=== PATIENT | female | born 1970 | race Caucasian/White ===

== ENCOUNTER → 2018-08-30 | Outpatient (CLI) | payer OTHER ==
[~2018-08-30] MED LIST: ALBIPROI INH; AMOX500 PO; CIPR500 PO; CLOT10 SUSW; CYCL10 PO; DEXA4 PO; DEXGUASY; DIPH12.5EL; DOCU100 PO; HYDACE5 PO; HYDCHL25; HYDGUAL120 PO; LEVFLO500 PO; LISI10; LISI20 PO; LISI5; LISI5 PO; METF500; METF500 PO; METR500 PO; OMEP20ER PO; ONMEL200 MG PO; OXYACE5T PO; PRED20 PO; PROM25 PO; RXOXYACE PO; SULTRIDS PO; TRAM50 PO; Zofran Odt4 MG PO
== END | disposition home or self-care (01) ==
LOC: LAB EV 12:58 → LAB SHORT 12:58
DX: J02.9 Acute pharyngitis, unspecified (principal)
CPT/HCPCS: 87070; 87147

== ENCOUNTER → 2021-04-06 | Outpatient (CLI) | payer OTHER | LOC: LAB SHORT 12:30 → LAB 12:30 | DX: L03.116 Cellulitis of left lower limb (principal); Z88.1 Allergy status to other antibiotic agents | CPT/HCPCS: 87070; 87205 ==

== ENCOUNTER → 2024-03-15 | Outpatient (CLI) | payer OTHER ==
[2024-03-24 05:54] LABS: HPV HIGH RISK BY TMA Not Detected; HPV SOURCE Cervical
== END ==
LOC: LAB SHORT 18:19 → LAB 18:19
PROVIDERS: Family Medicine
DX: Z01.419 Encounter for gynecological examination (general) (routine) without abnormal findings (principal)
CPT/HCPCS: 87624; G0123

== ENCOUNTER → 2024-09-02 | Outpatient (CLI) | payer OTHER | END | disposition home or self-care (01) | LOC: LAB SHORT 07:53 → LAB 07:53 | PROVIDERS: Internal Medicine | DX: R05.1 Acute cough (principal) | CPT/HCPCS: 87280 ==